=== PATIENT | female | born 1990 | race Caucasian/White ===

== ENCOUNTER 2019-01-22 17:00 | Emergency (ER) | payer SELFPAY ==
[~2019-01-22] VITALS: Ht 154.9 cm; Wt 46.0 kg
[2019-01-22 20:30] VITALS: BP 105/64
== END 2019-01-22 20:30 | disposition home or self-care (01) ==
LOC: ER 17:00
DX: L03.317 Cellulitis of buttock (principal); J45.909 Unspecified asthma, uncomplicated; Z98.890 Other specified postprocedural states
CPT/HCPCS: 81025; 99283